=== PATIENT | female | born 1950 | race Caucasian/White ===

== ENCOUNTER 2023-03-06 07:00 | Day surgery (SDC) | payer OTHER, MEDICAID ==
[~2023-03-06] VITALS: Ht 162.6 cm; Wt 74.4 kg
[~2023-03-06 07:00] MED LIST: ALPR0.5T PO; ASPI-543 PO; ATOR10TA PO; CARV25TA PO; DONE10TA9 PO; EST0625T PO; GABA-1250 PO; HYDR-4296 PO; HYDR-4798 PO; LABE200T7 PO; MECL1TAB32 PO; POM PO; VENL75CA3 PO; ZINC50TA7 PO
[2023-03-06] MEDS ORDERED: LIDOCAINE 2%HCL (LOCAL ANESTH.) INJ 20ML MDV ONE (07:34)
[2023-03-06] MEDS ORDERED: IODIXANOL 320MG/ML 100ML BTL IV ONE (07:34)
[2023-03-06] MEDS ORDERED: ANGIOMAX 250 MG VIAL IV ONE (07:53)
[2023-03-06] MEDS ORDERED: MIDAZOLAM HCL 2MG/2ML 2ml VIAL (1mg/ml) ONE (07:54)
[2023-03-06] MEDS ORDERED: VERAPAMIL 2.5MG/ML INJ 2ML VIAL IV ONE (07:54)
[2023-03-06] MEDS ORDERED: fentaNYL CITRATE 100 MCG/2 ML VL ONE (07:54)
[2023-03-06] MEDS ORDERED: HEPARIN SODIUM (PORCINE) 5000 UNITS/ML 1ML VIAL ONE (07:54)
[2023-03-06] MEDS ORDERED: SODIUM CHL 0.9% 0 ML ONE (07:54)
[2023-03-06] MEDS ORDERED: DONE10TA9 PO (09:20)
[2023-03-06] MEDS ORDERED: MEMA14CA PO (09:20)
== END 2023-03-06 10:28 | disposition home or self-care (01) ==
LOC: CATH 07:00
PROVIDERS: ATTEND Internal Medicine Cardiovascular Disease
DX: R94.39 Abnormal result of other cardiovascular function study (principal); R06.09 Other forms of dyspnea; I10 Essential (primary) hypertension; E78.5 Hyperlipidemia, unspecified; F32.9 Major depressive disorder, single episode, unspecified; E03.9 Hypothyroidism, unspecified; M19.90 Unspecified osteoarthritis, unspecified site; K21.9 Gastro-esophageal reflux disease without esophagitis; Z98.890 Other specified postprocedural states; Z79.899 Other long term (current) drug therapy
CPT/HCPCS: 93458; C1725; C1894; J1644; J2250; J3010; J7040; Q9967; 99152